=== PATIENT | male | born 1990 | race Hispanic/Latino ===

== ENCOUNTER 2019-04-12 13:33 | Inpatient (IN) | payer OTHER ==
--- NOTE | 2019-04-12 15:22 | Event Note ---
ED Screening Note ED Screening Note: rectal pain that began 4 days ago difficulty having BM no blood no pus drainage no lumps states he has had hemorrhoids in the past PMHx none no allergies to meds states he does do rectal intercourse This initial assessment/diagnostic orders/clinical plan/treatment(s) is/are subject to change based on patients health status, clinical progression and re- assessment by fellow clinical providers in the ED. Further treatment and workup at subsequent clinical providers discretion. Patient/guardian urged not to elope from the ED as their condition may be serious if not clinically assessed and managed. Initial orders include: ACC eval
[2019-04-12 17:45] LABS: Basophils % (Auto) 0.3 % (0.0-1.8); Eosinophils % (Auto) 0.2 % (0.0-4.3); Hematocrit 59.8 % (35.5-45.6); Lymphocytes # (Auto) 1.2 K/mm3 (1.2-5.4); Lymphocytes % (Auto) 11.2 % (13.4-35.0); Mean Corpuscular HGB Conc 35 % (32-34); Mean Corpuscular Volume 98 fl (84-94); Monocytes # (Auto) 0.9 K/mm3 (0.0-0.8); Monocytes % (Auto) 7.7 % (0.0-7.3); Platelet Count 235 K/mm3 (140-440); Red Cell Distribution Width 14.9 % (13.2-15.2)
[2019-04-12 17:48] LABS: Hemoglobin 20.6 gm/dl (11.8-15.2)
[2019-04-12 18:06] LABS: BUN/Creatinine Ratio 7; Blood Urea Nitrogen 5 mg/dL (9-20); Hemolysis Index 49
[2019-04-12] MEDS ORDERED: oxyCODONE /ACETAMINOPHEN 5-325MG TAB PO ONE (18:44)
--- NOTE | 2019-04-12 18:53 | Emergency Department Report ---
ED Male HPI - General Chief complaint: Pain General Stated complaint: RECTAL PAIN Time Seen by Provider: 04/12/19 15:21 Source: patient Mode of arrival: Ambulatory Limitations: No Limitations - History of Present Illness Initial comments: 28 yo male c/o rectal pain and pressure x 4 days. He denies abdominal pain, no diarrhea no n/v no fever or chills. His last BM was yesterday. He admits to having anal sex last time 4 weeks ago. Consistency: constant Improves with: none Worsens with: none denies other symptoms - Related Data Sexually active: Yes (anal sex 4 weeks ago) Allergies Allergy/AdvReac Type Severity Reaction Status Date / Time No Known Allergies Allergy Verified 04/12/19 13:43 ED Review of Systems ROS: Stated complaint: RECTAL PAIN Other details as noted in HPI Comment: All other systems reviewed and negative Constitutional: denies: chills, fever Respiratory: no symptoms reported Cardiovascular: denies: chest pain, palpitations, dyspnea on exertion Gastrointestinal: denies: abdominal pain, diarrhea, constipation Genitourinary: other (rectal pain ) Musculoskeletal: as per HPI Skin: as per HPI ED Past Medical Hx - Past Medical History Previous Medical History?: No - Surgical History Past Surgical History?: No - Social History Smoking Status: Current Every Day Smoker Substance Use Type: None ED Physical Exam - General Limitations: No Limitations General appearance: alert, in no apparent distress - Eye Eye exam: Present: normal appearance. Absent: conjunctival injection - ENT ENT exam: Present: mucous membranes moist - Neck Neck exam: Present: normal inspection - Respiratory Respiratory exam: Present: normal lung sounds bilaterally. Absent: respiratory distress, wheezes, rales, rhonchi, stridor - Cardiovascular Cardiovascular Exam: Present: regular rate, normal heart sounds - GI/Abdominal GI/Abdominal exam: Present: soft, normal bowel sounds, other (normal rectal tone. 1 external hemorrhoid non tender not bleeding, digital rectal exam tenderness to left @3"oclock. ). Absent: distended, tenderness, guarding, rebound - Rectal Rectal exam: Present: normal inspection, normal rectal tone, hemorrhoids, tenderness. Absent: fecal impaction, mass - exam: Present: normal inspection, other (no lymphadenopathy) - Extremities Exam Extremities exam: Present: normal inspection - Back Exam Back exam: Present: normal inspection - Neurological Exam Neurological exam: Present: alert, oriented X3 - Psychiatric Psychiatric exam: Present: normal affect - Skin Skin exam: Present: warm, dry, intact. Absent: rash ED Course Vital Signs 04/12/19 04/12/19 04/12/19 15:22 17:41 18:54 Temperature 98.2 F 99.0 F Pulse Rate 130 H 115 H Respiratory 22 16 17 Rate Blood Pressure 157/111 Blood Pressure 144/95 [Left] O2 Sat by Pulse 96 98 Oximetry 04/12/19 04/13/19 22:23 01:05 Temperature 98.3 F 98.7 F Pulse Rate 87 88 Respiratory 15 16 Rate Blood Pressure Blood Pressure 141/100 150/98 [Left] O2 Sat by Pulse 98 98 Oximetry - Reevaluation(s) Reevaluation #1: 04/12/19 23:[address] Wagoner general surgeon called plan is to admit pt to hospital Reevaluation #2: 04/12/19 23:[address] Martinez ED Medical Decision Making - Lab Data Result diagrams: 04/12/19 17:37 04/12/19 17:37 - Radiology Data Radiology results: report reviewed CT ABD/PELVIS IMPRESSION: 1. Moderate-sized perirectal collection with inflammation, presumably an abscess 2. Focal area of peripheral infiltrate in the left lower lobe. Though this could be pneumonitis, the configuration and slight suggestion, possibly artifactual, of hypodensity in the left lower lobe vasculature would raise the question of pulmonary thromboembolism with infarct. Clinical correlation is suggested. CTA chest might be useful. 3. Moderate fatty infiltration of the liver. Hepatosplenomegaly. - Medical Decision Making 28 yo male with c/o rectal pain and pressure x 4 days. Admits to anal sex last encounter 4 weeks ago Having regular BM but very painful Rectal exam + for tenderness on left. No stool in rectal vault normal rectal tone CT of abdomen and Pelvis + for left rectal abscess WBC 11 IV Fluids for hydration Pain management with Percocet, Morphine and Toradol [address] Wagoner surgeon consulted pt to be admitted Dr. Martinez hospitalist notified PT NPO IV fluids IV unasyn Awaiting bed for in patient admission - Differential Diagnosis Internal hemorrhoids, Anal fissure, Critical Care Time: No Critical care attestation.: If time is entered above; I have spent that time in minutes in the direct care of this critically ill patient, excluding procedure time. ED Disposition Clinical Impression: Rectal abscess Disposition: [id number] OP ADMIT IP TO THIS HOSP Is pt being admited?: Yes Does the pt Need Aspirin: No Condition: Stable
--- NOTE | 2019-04-12 21:15 | Cat Scan Report ---
CT ABDOMEN AND PELVIS WITHOUT CONTRAST INDICATION: rectal pain CONTRAST: Without IV COMPARISON: None available. All CT scans at this location are performed using CT dose reduction for ALARA by means of automated e xposure control. FINDINGS: Focal area of the somewhat wedgelike peripheral infiltrate is seen in the posterior basal s egment of the left lower lobe. Study was performed without contrast and the vasculature cannot truly be examined though some of the vessels extending to this general area have a suggestion of lower dens ity centrally though this may just be artifact and certainly is not definitive for thrombus. No pneumoperitoneum is seen. No urinary tract calculi or evidence of obstruction are noted. Fatty inf iltration of the liver is moderately prominent in the liver is enlarged. Hepatic length measures 20.2 cm. No obvious focal masses are seen. Spleen is also mildly prominent in volume and has a length of 13.5 cm at the upper end of the normal range. Gallbladder shows sludge but no wall thickening or calc brandon. No biliary dilatation is seen. Pancreas appears within normal limits. No lymphadenopathy is seen . Appendix appears within normal limits. No evidence of bowel obstruction is noted. A complex collection is seen adjacent to the left aspect of the upper to mid rectum appearing to disp lace the rectum to the right. This collection is thick walled and shows surrounding inflammation. Dim ensions are 3.7 x 5 x 5.8 cm. No internal gas is seen. Internal density measures 21 Hounsfield units just above the water range and the collection shows moderate inhomogeneity. I do not see obstructive change on the adjacent:. No other collections are seen. IMPRESSION: 1. Moderate-sized perirectal collection with inflammation, presumably an abscess 2. Focal area of peripheral infiltrate in the left lower lobe. Though this could be pneumonitis, the configuration and slight suggestion, possibly artifactual, of hypodensity in the left lower lobe vasc ulature would raise the question of pulmonary thromboembolism with infarct. Clinical correlation is s uggested. CTA chest might be useful. 3. Moderate fatty infiltration of the liver. Hepatosplenomegaly. Signer Name: Marquis Alcaraz MD Signed: 04/12/2019 9:10 PM Workstation Name: [id number]
[2019-04-12] MEDS ORDERED: MORPHINE 2 MG/1 ML INJ IM ONE ×2 (21:19→22:11)
[2019-04-12 21:35] LABS: Color,Urine Yellow (Yellow)
[2019-04-12 21:36] LABS: Bacteria,Urine 1+ /HPF (Negative); Bilirubin,Urine NEG (Negative); Blood,Urine SM (Negative); Mucus,Urine 2+ /HPF; Protein,Urine <15 mg/dL mg/dL (Negative)
[2019-04-12] MEDS ORDERED: SODIUM CHLORIDE 0.9% 1000 ML 1,000 ML IV ONE (22:11)
[2019-04-12] MEDS ORDERED: D5W/0.45% NACL 1,000 ML IV SCH (23:00)
[2019-04-12] MEDS ORDERED: KETOROLAC 30 MG/1 ML INJ IV ONE (23:14)
[2019-04-12] MEDS ORDERED: KETOROLAC 30 MG/1 ML INJ ONE (23:17)
--- NOTE | 2019-04-12 23:42 | History and Physical Report ---
History of Present Illness Date of examination: 04/12/19 History of present illness: 28 with no medical problems to emergency room with complaints of left side rectal pain started 4 days ago, worse when he coughs sneezes. The pain is constant, sharp, intensity 7/10, no radiation, better with pain medication given in the emergency room, no fever or chills, admits to anal sex 2 weeks ago. Patient is being admitted for treatment of perirectal abscess Review Of Systems: Constitutional: no weight loss, fever, chills Ears, eyes, nose, mouth and throat: no nasal congestion, no nasal discharge, no sinus pressure, blurry vision, diplopia Neck: No neck pain or rigidity. Cardiovascular: No palpitations, chest pain Respiratory: No shortness of breath, cough Gastrointestinal: No hematochezia, abdominal pain Genitourinary : no dysuria, frequency Musculoskeletal: no muscle ache , joint pain Integumentary: no rash, no pruritis Neurological: no parathesias, focal weakness Endocrine: no cold or heat intolerance, no polyuria or polydipsia Hematologic/Lymphatic: no easy bruising, no easy bleeding, no gland swelling Allergic/Immunologic: no urticaria, no angioedema. PAST MEDICAL HISTORY: None PAST SURGICAL HISTORY: None SOCIAL HISTORY: Denies alcohol, drugs, smokes 1-1/2 packs every 2 days FAMILY HISTORY: Hypertension Medications and Allergies Allergies Allergy/AdvReac Type Severity Reaction Status Date / Time No Known Allergies Allergy Verified 04/12/19 13:43 Active Meds: Active Medications Enoxaparin Sodium (Enoxaparin) 30 mg SUB-Q QDAY PEREZ Dextrose/Sodium Chloride (D5/0.45ns) 1,000 mls @ 100 mls/hr IV DIRECT PEREZ Ampicillin Sodium/Sulbactam Sodium (Unasyn/Ns 1.5 Gm/50 Ml) 1.5 gm in 50 mls @ 100 mls/hr IV ONCE ONE; Protocol Stop: 04/13/19 00:29 Exam - Physical Exam Narrative exam: Gen. appearance: Patient lying in bed, no apparent distress HEENT: Normocephalic, atraumatic, pupils equally round and reactive to light, extraocular movement intact, and no sclericterus,. No JVD or thyromegaly or nodule,neck supple, no carotid bruit ,mucous membranes moist, no exudate or erythema Heart: S1, S2, regular rate and rhythm Lungs: Clear bilaterally, breathing comfortable Abdomen: Positive bowel sounds, nontender, nondistended, no organomegaly Rectal:outer appearance is normal, + fluctuance on the left rectal wall Extremity: no edema, cyanosis, clubbing Skin: No rash, nodules, warm, dry Neuro: speech is fluent, moves extremities, sensory intact - Constitutional Vitals: Temp Pulse Resp BP Pulse Ox 98.3 F 87 15 141/100 98 04/12/19 22:23 04/12/19 22:23 04/12/19 22:23 04/12/19 22:23 04/12/19 22:23 Results - Labs CBC & Chem 7: 04/12/19 17:37 04/12/19 17:37 Labs: Abnormal lab results 04/12/19 04/12/19 Range/Units 17:37 17:37 WBC 11.1 H (4.5-11.0) K/mm3 RBC 6.10 H (3.65-5.03) M/mm3 Hgb 20.6 H* (11.8-15.2) gm/dl Hct 59.8 H (35.5-45.6) % MCV 98 H (84-94) fl MCH 34 H (28-32) pg MCHC 35 H (32-34) % Lymph % (Auto) 11.2 L (13.4-35.0) % [place] % (Auto) 7.7 H (0.0-7.3) % [place] # 0.9 H (0.0-0.8) K/mm3 Seg Neutrophils % 80.6 H (40.0-70.0) % Seg Neutrophils # 9.0 H (1.8-7.7) K/mm3 Sodium 132 L (137-145) mmol/L Chloride 97.8 L (98-107) mmol/L BUN 5 L (9-20) mg/dL Creatinine 0.7 L (0.8-1.5) mg/dL - Imaging and Cardiology CT scan - abdomen: report reviewed CT scan - pelvis: report reviewed Assessment and Plan Assessment Perirectal abscess Patient will be started on IV fluids, Unasyn Surgery was consulted to see the patient, n.p.o. Possible pneumonia versus PE Will check CT chest Hyponatremia on IV fluids Secondary polycythemia vera, continue to monitor DVT prophylaxis
[2019-04-13] MEDS ORDERED: AMPICILLIN/SULBACTA 1.5GM/50ML 1.5 GM/50 ML BAG IV ONE
[2019-04-13] MEDS ORDERED: ACETAMINOPHEN 325 MG TAB PO PRN (02:38)
[2019-04-13] MEDS ORDERED: ONDANSETRON 4 MG/2 ML INJ IV PRN (02:38)
[2019-04-13] MEDS: MORPHINE 2 MG/1 ML INJ IV PRN ×4 (02:43→12:39)
[2019-04-13] MEDS ORDERED: MORPHINE 2 MG/1 ML INJ ONE (02:45)
[2019-04-13] MEDS: SODIUM CHLORIDE 0.9% 1000 ML 1,000 ML IV SCH ×4 (03:48→23:56)
[2019-04-13] MEDS: AMPICILLIN/SULBACTA 3GM/100ML 3 GM/100 ML BAG IV SCH ×4 (06:57→23:51)
[2019-04-13] MEDS: ENOXAPARIN 40 MG/0.4 ML INJ SUB-Q SCH (10:28)
[2019-04-13 11:29] LABS: Basophils % (Auto) 0.3 % (0.0-1.8); Eosinophils % (Auto) 0.1 % (0.0-4.3); Hematocrit 58.4 % (35.5-45.6); Hemoglobin 19.6 gm/dl (11.8-15.2); Lymphocytes # (Auto) 1.2 K/mm3 (1.2-5.4); Lymphocytes % (Auto) 9.4 % (13.4-35.0); Mean Corpuscular HGB Conc 34 % (32-34); Mean Corpuscular Volume 99 fl (84-94); Monocytes # (Auto) 0.9 K/mm3 (0.0-0.8); Monocytes % (Auto) 7.2 % (0.0-7.3); Red Cell Distribution Width 14.5 % (13.2-15.2)
[2019-04-13 11:40] LABS: Platelet Count 252 K/mm3 (140-440)
[2019-04-13 12:03] LABS: BUN/Creatinine Ratio 7; Blood Urea Nitrogen 4 mg/dL (9-20); Calcium 8.5 mg/dL (8.4-10.2); Hemolysis Index 2
[2019-04-13] MEDS ORDERED: POLYETHYLENE GLYCOL 3350 17 GM POWDER PO PRN (12:39)
[2019-04-13] MEDS ORDERED: HYDROmorphone 1 MG/1 ML INJ IV PRN (14:57)
--- NOTE | 2019-04-13 15:01 | Consultation ---
History of Present Illness Consult date: 04/13/19 Chief complaint: rectal pain - History of present illness History of present illness: 28 yo M with no PMHx presented to ER with 5 days of worsening sharp pressure like rectal pain. He states that he has never had pain like this before. It is predominantly located on the right side. It is exacerbated by coughing, laying on his back, or trying to have a BM. He had a normal BM yesterday and is passing flatus. He denies abdominal pain, f/c. No inciting events. No hx of inflammatory bowel disease. Rectal exam performed in ER reproduced pain. No drainage or bleeding per rectum Past History Past Medical History: No medical history Past Surgical History: No surgical history Social history: no significant social history Family history: no significant family history Medications and Allergies Allergies Allergy/AdvReac Type Severity Reaction Status Date / Time No Known Allergies Allergy Verified 04/12/19 13:43 Active Meds: Active Medications Acetaminophen (Tylenol) 650 mg PO Q4H PRN PRN Reason: Pain MILD(1-3)/Fever >100.5/VALENTINO Last Admin: 04/13/19 03:46 Dose: 650 mg Documented by: Docusate Sodium (Colace) 100 mg PO BID PEREZ Enoxaparin Sodium (Enoxaparin) 40 mg SUB-Q QDAY [facility] Last Admin: 04/13/19 10:28 Dose: 40 mg Documented by: Hydromorphone HCl (Dilaudid) 0.5 mg IV Q3H PRN PRN Reason: Pain , Severe (7-10) Sodium Chloride (Nacl 0.9% 1000 Ml) 1,000 mls @ 150 mls/hr IV DIRECT [facility] Last Admin: 04/13/19 10:50 Dose: 150 mls/hr Documented by: Ampicillin Sodium/Sulbactam Sodium (Unasyn/Ns 3 Gm/100 Ml) 3 gm in 100 mls @ 100 mls/hr IV Q6HR [facility]; Protocol Last Admin: 04/13/19 12:33 Dose: 100 mls/hr Documented by: Morphine Sulfate (Morphine) 2 mg IV Q4H PRN PRN Reason: Pain, Moderate (4-6) Last Admin: 04/13/19 12:39 Dose: 2 mg Documented by: Ondansetron HCl (Zofran) 4 mg IV Q8H PRN PRN Reason: Nausea And Vomiting Polyethylene Glycol (Miralax 3350) 17 gm PO QDAY PRN PRN Reason: Constipation Sodium Chloride (Sodium Chloride Flush Syringe 10 Ml) 10 ml IV BID PEREZ Last Admin: 04/13/19 10:28 Dose: 10 ml Documented by: Sodium Chloride (Sodium Chloride Flush Syringe 10 Ml) 10 ml IV PRN PRN PRN Reason: LINE FLUSH Review of Systems All systems: negative (10 pt ROS performed and negative except for that listed in HPI) Exam Vital Signs Temp Pulse Resp BP Pulse Ox 98.2 F 130 H 22 157/111 96 04/12/19 15:22 04/12/19 15:22 04/12/19 15:22 04/12/19 15:22 04/12/19 15:22 Narrative exam: Gen; AAOx3. mild distress due to pain ENT: No scleral icterus or conjunctival pallor CV: S1, S2+ Resp: even and unlabored Abd: soft, NT, ND Ext: no c/c/e Rectal: deferred due to pain Results - Labs 04/13/19 10:17 04/13/19 10:17 Abnormal lab results 04/12/19 04/12/19 04/13/19 Range/Units 17:37 17:37 10:17 WBC 11.1 H 13.0 H (4.5-11.0) K/mm3 RBC 6.10 H 5.90 H (3.65-5.03) M/mm3 Hgb 20.6 H* 19.6 H (11.8-15.2) gm/dl Hct 59.8 H 58.4 H (35.5-45.6) % MCV 98 H 99 H (84-94) fl MCH 34 H 33 H (28-32) pg MCHC 35 H (32-34) % Lymph % (Auto) 11.2 L 9.4 L (13.4-35.0) % [place] % (Auto) 7.7 H (0.0-7.3) % [place] # 0.9 H 0.9 H (0.0-0.8) K/mm3 Seg Neutrophils % 80.6 H 83.0 H (40.0-70.0) % Seg Neutrophils # 9.0 H 10.8 H (1.8-7.7) K/mm3 Sodium 132 L (137-145) mmol/L Potassium (3.6-5.0) mmol/L Chloride 97.8 L (98-107) mmol/L BUN 5 L (9-20) mg/dL Creatinine 0.7 L (0.8-1.5) mg/dL 04/13/19 Range/Units 10:17 WBC (4.5-11.0) K/mm3 RBC (3.65-5.03) M/mm3 Hgb (11.8-15.2) gm/dl Hct (35.5-45.6) % MCV (84-94) fl MCH (28-32) pg MCHC (32-34) % Lymph % (Auto) (13.4-35.0) % [place] % (Auto) (0.0-7.3) % [place] # (0.0-0.8) K/mm3 Seg Neutrophils % (40.0-70.0) % Seg Neutrophils # (1.8-7.7) K/mm3 Sodium (137-145) mmol/L Potassium 3.4 L (3.6-5.0) mmol/L Chloride (98-107) mmol/L BUN 4 L (9-20) mg/dL Creatinine 0.6 L (0.8-1.5) mg/dL Diabetes panel 04/12/19 04/13/19 Range/Units 17:37 10:17 Sodium 132 L 139 D (137-145) mmol/L Potassium 4.1 3.4 L (3.6-5.0) mmol/L Chloride 97.8 L 102.4 (98-107) mmol/L Carbon Dioxide 22 23 (22-30) mmol/L BUN 5 L 4 L (9-20) mg/dL Creatinine 0.7 L 0.6 L (0.8-1.5) mg/dL Glucose 88 87 (75-100) mg/dL Calcium 9.0 8.5 (8.4-10.2) mg/dL Calcium panel 04/12/19 04/13/19 Range/Units 17:37 10:17 Calcium 9.0 8.5 (8.4-10.2) mg/dL Pituitary panel 04/12/19 04/13/19 Range/Units 17:37 10:17 Sodium 132 L 139 D (137-145) mmol/L Potassium 4.1 3.4 L (3.6-5.0) mmol/L Chloride 97.8 L 102.4 (98-107) mmol/L Carbon Dioxide 22 23 (22-30) mmol/L BUN 5 L 4 L (9-20) mg/dL Creatinine 0.7 L 0.6 L (0.8-1.5) mg/dL Glucose 88 87 (75-100) mg/dL Calcium 9.0 8.5 (8.4-10.2) mg/dL Adrenal panel 04/12/19 04/13/19 Range/Units 17:37 10:17 Sodium 132 L 139 D (137-145) mmol/L Potassium 4.1 3.4 L (3.6-5.0) mmol/L Chloride 97.8 L 102.4 (98-107) mmol/L Carbon Dioxide 22 23 (22-30) mmol/L BUN 5 L 4 L (9-20) mg/dL Creatinine 0.7 L 0.6 L (0.8-1.5) mg/dL Glucose 88 87 (75-100) mg/dL Calcium 9.0 8.5 (8.4-10.2) mg/dL - Imaging CT scan - abdomen: report reviewed, image reviewed CT scan - pelvis: report reviewed, image reviewed Assessment and Plan 28 yo M with perirectal abscess Plan: 1. soft diet, NPO p MN tonight 2. stool softeners 3. prn pain control 4. IV abx 5. CT A/P reviewed and abscess is located adjacent to the mid/upper rectum. Will not be able to drain this surgically through rectum. Recommend IR consultation for CT guided percutaneous drainage. Discussed imaging findings and plan with patient in detail. He understands Thank you, please call with questions.
--- NOTE | 2019-04-13 15:33 | Progress Note ---
Assessment and Plan Assessment and plan: --Perirectal abscess; IV antibiotics, pain medications and supportive care possible IR to CT guided percutaneous drainage tomorrow Stool softeners, --Constipation; stool softeners --Hyponatremia; present on admission Improvement, continue IV fluids --Hypokalemia; replace per protocol Monitor electrolytes --Polycythemia/high hemoglobin Unknown etiology, trending down Closely monitor Hematology consult inpatient versus outpatient --DVT prophylaxis; Lovenox Monitor closely and adjust management as needed Plan of care reviewed with the patient and his nurse History Interval history: Patient seen and examined medical records reviewed Admitted With perirectal abscess on IV antibiotics Surgical evaluation noted and appreciated Schedule for surgical procedure/IR aspiration tomorrow, And complaints of constipation, and some pain in the rectal area Vital signs noted Hospitalist Physical - Constitutional Vitals: Temp Pulse Resp BP Pulse Ox 99.8 F H 103 H 18 146/92 97 04/13/19 12:33 04/13/19 12:33 04/13/19 12:33 04/13/19 12:33 04/13/19 12:33 General appearance: Present: mild distress, well-nourished - EENT Eyes: Present: PERRL, EOM intact - Neck Neck: Present: supple, normal ROM - Respiratory Respiratory effort: normal Respiratory: negative: rales, rhonchi, wheezing - Cardiovascular Rhythm: regular Heart Sounds: Present: S1 & S2 - Extremities Extremities: no ischemia, No edema - Abdominal General gastrointestinal: soft, non-tender, non-distended, normal bowel sounds - Integumentary Integumentary: Present: clear, warm - Psychiatric Psychiatric: appropriate mood/affect, cooperative - Neurologic Neurologic: moves all extremities Results - Labs CBC & Chem 7: 04/13/19 10:17 04/13/19 10:17 Labs: Laboratory Last Values WBC 13.0 K/mm3 (4.5-11.0) H 04/13/19 10:17 RBC 5.90 M/mm3 (3.65-5.03) H 04/13/19 10:17 Hgb 19.6 gm/dl (11.8-15.2) H 04/13/19 10:17 Hct 58.4 % (35.5-45.6) H 04/13/19 10:17 MCV 99 fl (84-94) H 04/13/19 10:17 MCH 33 pg (28-32) H 04/13/19 10:17 MCHC 34 % (32-34) 04/13/19 10:17 RDW 14.5 % (13.2-15.2) 04/13/19 10:17 Plt Count 252 K/mm3 (140-440) 04/13/19 10:17 Lymph % (Auto) 9.4 % (13.4-35.0) L 04/13/19 10:17 [place] % (Auto) 7.2 % (0.0-7.3) 04/13/19 10:17 Eos % (Auto) 0.1 % (0.0-4.3) 04/13/19 10:17 Baso % (Auto) 0.3 % (0.0-1.8) 04/13/19 10:17 Lymph # 1.2 K/mm3 (1.2-5.4) 04/13/19 10:17 [place] # 0.9 K/mm3 (0.0-0.8) H 04/13/19 10:17 Eos # 0.0 K/mm3 (0.0-0.4) 04/13/19 10:17 Baso # 0.0 K/mm3 (0.0-0.1) 04/13/19 10:17 Seg Neutrophils % 83.0 % (40.0-70.0) H 04/13/19 10:17 Seg Neutrophils # 10.8 K/mm3 (1.8-7.7) H 04/13/19 10:17 Sodium 139 mmol/L (137-145) D 04/13/19 10:17 Potassium 3.4 mmol/L (3.6-5.0) L 04/13/19 10:17 Chloride 102.4 mmol/L (98-107) 04/13/19 10:17 Carbon Dioxide 23 mmol/L (22-30) 04/13/19 10:17 Anion Gap 17 mmol/L 04/13/19 10:17 BUN 4 mg/dL (9-20) L 04/13/19 10:17 Creatinine 0.6 mg/dL (0.8-1.5) L 04/13/19 10:17 Estimated GFR > 60 ml/min 04/13/19 10:17 BUN/Creatinine Ratio 7 % 04/13/19 10:17 Glucose 87 mg/dL (75-100) 04/13/19 10:17 Calcium 8.5 mg/dL (8.4-10.2) 04/13/19 10:17 Urine Color Yellow (Yellow) 04/12/19 Unknown Urine Turbidity Clear (Clear) 04/12/19 Unknown Urine pH 6.0 (5.0-7.0) 04/12/19 Unknown Ur Specific [place] 1.010 (1.003-1.030) 04/12/19 Unknown Urine Protein <15 mg/dl mg/dL (Negative) 04/12/19 Unknown Urine Glucose (UA) Neg mg/dL (Negative) 04/12/19 Unknown Urine Ketones 20 mg/dL (Negative) 04/12/19 Unknown Urine Blood Sm (Negative) 04/12/19 Unknown Urine Nitrite Neg (Negative) 04/12/19 Unknown Urine Bilirubin Neg (Negative) 04/12/19 Unknown Urine Urobilinogen 4.0 mg/dL (<2.0) 04/12/19 Unknown Ur Leukocyte Esterase Neg (Negative) 04/12/19 Unknown Urine WBC (Auto) 2.0 /HPF (0.0-6.0) 04/12/19 Unknown Urine RBC (Auto) 4.0 /HPF (0.0-6.0) 04/12/19 Unknown Urine Bacteria (Auto) 1+ /HPF (Negative) 04/12/19 Unknown Urine Mucus 2+ /HPF 04/12/19 Unknown Active Medications - Current Medications Current Medications: Generic Name Dose Route Start Last Admin Trade Name Freq PRN Reason Stop Dose Admin Acetaminophen 650 mg 04/13/19 02:38 04/13/19 03:46 Tylenol PO 650 mg Q4H PRN Administration Pain MILD(1-3)/Fever >100.5/VALENTINO Docusate Sodium 100 mg 04/13/19 22:00 Colace PO BID PEREZ Enoxaparin Sodium 40 mg 04/13/19 10:00 04/13/19 10:28 Enoxaparin SUB-Q 40 mg QDAY PEREZ Administration Hydromorphone HCl 0.5 mg 04/13/19 14:57 Dilaudid IV Q3H PRN Pain , Severe (7-10) Sodium Chloride 1,000 mls @ 150 mls/hr 04/13/19 02:45 04/13/19 10:50 Nacl 0.9% 1000 Ml IV 150 mls/hr DIRECT PEREZ Administration Ampicillin Sodium/Sulbactam Sodium 3 gm in 100 mls @ 100 mls/hr 04/13/19 06:00 04/13/19 12:33 Unasyn/Ns 3 Gm/100 Ml IV 100 mls/hr Q6HR PEREZ Administration Protocol Morphine Sulfate 2 mg 04/13/19 02:38 04/13/19 12:39 Morphine IV 2 mg Q4H PRN Administration Pain, Moderate (4-6) Ondansetron HCl 4 mg 04/13/19 02:38 Zofran IV Q8H PRN Nausea And Vomiting Polyethylene Glycol 17 gm 04/13/19 12:39 Miralax 3350 PO QDAY PRN Constipation Sodium Chloride 10 ml 04/13/19 10:00 04/13/19 10:28 Sodium Chloride Flush Syringe 10 Ml IV 10 ml BID PEREZ Administration Sodium Chloride 10 ml 04/13/19 02:38 Sodium Chloride Flush Syringe 10 Ml IV PRN PRN LINE FLUSH Nutrition/Malnutrition Assess - Dietary Evaluation Nutrition/Malnutrition Findings: Nutrition Notes Start: 04/13/19 10:54 Freq: Status: Active Protocol: Document 04/13/19 10:54 ALYSSIA (Rec: 04/13/19 10:55 ALYSSIA [id number]) Nutrition Notes Need for 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 Will assess upon further consult or LOS.
[2019-04-13] MEDS ORDERED: MAGNESIUM HYDROXIDE (MOM) ORAL LIQD UDC PO PRN (17:18)
[2019-04-13] MEDS ORDERED: MAGNESIUM HYDROXIDE (MOM) ORAL LIQD UDC PO ONE (17:18)
[2019-04-13] MEDS: DOCUSATE SODIUM 100 MG/10 ML ORAL LIQD PO SCH (21:23)
--- NOTE | 2019-04-13 21:47 | Cat Scan Report ---
CTA CHEST WITH IV CONTRAST INDICATION: P.E. PROTOCOL!!! Shortness of Breath w/ chest pain. TECHNIQUE: Axial CT images were obtained through the chest after injection of IV contrast. 3 plane MIP reconstru ctions were produced. All CT scans at this location are performed using CT dose reduction for ALARA b y means of automated exposure control. COMPARISON: CT abdomen one day prior. FINDINGS: Pulmonary Arteries: No pulmonary emboli. Thoracic Aorta: No acute abnormality. Heart: Normal. Lungs: Focal somewhat rounded consolidative change within the deep tendon left lung base again noted. This is unchanged. Lungs are otherwise clear. Pleura: No pleural effusion. No pneumothorax. Lymph Nodes: Shotty bilateral axillary nodes are noted. No pathologically enlarged nodes are seen in the chest. Additional Findings: None. Upper Abdomen: No acute findings. Skeletal Structures: No significant osseous abnormality. IMPRESSION: 1. No CT evidence for pulmonary embolism. 2. As seen on the CT abdomen from one day prior, there is focal, somewhat rounded consolidative juarez e in the dependent left lung base. This may be focal infiltrate. Follow-up is recommended after treat ment to confirm resolution. Signer Name: Bentley Bello MD Signed: 04/13/2019 9:42 PM Workstation Name: [id number]
[2019-04-14] MEDS: AMPICILLIN/SULBACTA 3GM/100ML 3 GM/100 ML BAG IV SCH ×4 (06:02→23:53)
[2019-04-14] MEDS: DOCUSATE SODIUM 100 MG/10 ML ORAL LIQD PO SCH ×3 (09:27→22:00)
[2019-04-14] MEDS: SODIUM CHLORIDE 0.9% 1000 ML 1,000 ML IV SCH ×3 (09:27→23:53)
[2019-04-14] MEDS: ENOXAPARIN 40 MG/0.4 ML INJ SUB-Q SCH (09:28)
--- NOTE | 2019-04-14 10:09 | Event Note ---
Date: 04/14/19 Patient with a history of perirectal abscess. CT scan performed with contrast for better delineation of her abscess. Patient will be scheduled for drainage tomorrow as we don't have enough technologists here today to be able to perform this procedure.
--- NOTE | 2019-04-14 11:37 | Progress Note ---
Assessment and Plan Assessment and plan: --Perirectal abscess; IV antibiotics, pain medications and supportive care CT guided percutaneous drainage rescheduled for tomorrow Due to staffing issueStool softeners, --Constipation; stool softeners --Hyponatremia; present on admission Improved, continue IV fluids --Hypokalemia; replace per protocol Monitor electrolytes --Polycythemia/high hemoglobin Unknown etiology, trending down Closely monitor Hematology consult inpatient versus outpatient --DVT prophylaxis; Lovenox Disposition; CT-guided drainage tomorrow Possible discharge in 1-2 days if stable Plan of care is reviewed with the patient and his nurse . History Interval history: Patient seen and examined medical records reviewed Patient complains of some pain Constipation relieved by stool softener Vital Signs noted Hospitalist Physical - Constitutional Vitals: Temp Pulse Resp BP Pulse Ox 98.8 F 86 18 139/86 96 04/14/19 05:52 04/14/19 05:52 04/14/19 05:52 04/14/19 05:52 04/14/19 05:52 General appearance: Present: mild distress, well-nourished - EENT Eyes: Present: PERRL, EOM intact - Neck Neck: Present: supple, normal ROM - Respiratory Respiratory effort: normal Respiratory: bilateral: diminished, negative: rales, rhonchi, wheezing - Cardiovascular Rhythm: regular Heart Sounds: Present: S1 & S2 - Extremities Extremities: no ischemia, No edema - Abdominal General gastrointestinal: soft, non-tender, non-distended, normal bowel sounds - Integumentary Integumentary: Present: clear, warm - Psychiatric Psychiatric: appropriate mood/affect, cooperative - Neurologic Neurologic: CNII-XII intact, moves all extremities Results - Labs CBC & Chem 7: 04/14/19 15:40 04/13/19 10:17 Labs: Laboratory Last Values WBC 13.0 K/mm3 (4.5-11.0) H 04/13/19 10:17 RBC 5.90 M/mm3 (3.65-5.03) H 04/13/19 10:17 Hgb 19.6 gm/dl (11.8-15.2) H 04/13/19 10:17 Hct 58.4 % (35.5-45.6) H 04/13/19 10:17 MCV 99 fl (84-94) H 04/13/19 10:17 MCH 33 pg (28-32) H 04/13/19 10:17 MCHC 34 % (32-34) 04/13/19 10:17 RDW 14.5 % (13.2-15.2) 04/13/19 10:17 Plt Count 252 K/mm3 (140-440) 04/13/19 10:17 Lymph % (Auto) 9.4 % (13.4-35.0) L 04/13/19 10:17 [place] % (Auto) 7.2 % (0.0-7.3) 04/13/19 10:17 Eos % (Auto) 0.1 % (0.0-4.3) 04/13/19 10:17 Baso % (Auto) 0.3 % (0.0-1.8) 04/13/19 10:17 Lymph # 1.2 K/mm3 (1.2-5.4) 04/13/19 10:17 [place] # 0.9 K/mm3 (0.0-0.8) H 04/13/19 10:17 Eos # 0.0 K/mm3 (0.0-0.4) 04/13/19 10:17 Baso # 0.0 K/mm3 (0.0-0.1) 04/13/19 10:17 Seg Neutrophils % 83.0 % (40.0-70.0) H 04/13/19 10:17 Seg Neutrophils # 10.8 K/mm3 (1.8-7.7) H 04/13/19 10:17 Sodium 139 mmol/L (137-145) D 04/13/19 10:17 Potassium 3.4 mmol/L (3.6-5.0) L 04/13/19 10:17 Chloride 102.4 mmol/L (98-107) 04/13/19 10:17 Carbon Dioxide 23 mmol/L (22-30) 04/13/19 10:17 Anion Gap 17 mmol/L 04/13/19 10:17 BUN 4 mg/dL (9-20) L 04/13/19 10:17 Creatinine 0.6 mg/dL (0.8-1.5) L 04/13/19 10:17 Estimated GFR > 60 ml/min 01/01/20 10:17 BUN/Creatinine Ratio 7 % 04/13/19 10:17 Glucose 87 mg/dL (75-100) 04/13/19 10:17 Calcium 8.5 mg/dL (8.4-10.2) 04/13/19 10:17 Urine Color Yellow (Yellow) 04/12/19 Unknown Urine Turbidity Clear (Clear) 04/12/19 Unknown Urine pH 6.0 (5.0-7.0) 04/12/19 Unknown Ur Specific [place] 1.010 (1.003-1.030) 04/12/19 Unknown Urine Protein <15 mg/dl mg/dL (Negative) 04/12/19 Unknown Urine Glucose (UA) Neg mg/dL (Negative) 04/12/19 Unknown Urine Ketones 20 mg/dL (Negative) 04/12/19 Unknown Urine Blood Sm (Negative) 04/12/19 Unknown Urine Nitrite Neg (Negative) 04/12/19 Unknown Urine Bilirubin Neg (Negative) 04/12/19 Unknown Urine Urobilinogen 4.0 mg/dL (<2.0) 04/12/19 Unknown Ur Leukocyte Esterase Neg (Negative) 04/12/19 Unknown Urine WBC (Auto) 2.0 /HPF (0.0-6.0) 04/12/19 Unknown Urine RBC (Auto) 4.0 /HPF (0.0-6.0) 04/12/19 Unknown Urine Bacteria (Auto) 1+ /HPF (Negative) 04/12/19 Unknown Urine Mucus 2+ /HPF 04/12/19 Unknown Active Medications - Current Medications Current Medications: Generic Name Dose Route Start Last Admin Trade Name Freq PRN Reason Stop Dose Admin Acetaminophen 650 mg 04/13/19 02:38 04/13/19 03:46 Tylenol PO 650 mg Q4H PRN Administration Pain MILD(1-3)/Fever >100.5/VALENTINO Docusate Sodium 100 mg 04/13/19 22:00 04/14/19 09:27 Colace PO Not Given BID PEREZ Enoxaparin Sodium 40 mg 04/13/19 10:00 04/14/19 09:28 Enoxaparin SUB-Q Not Given QDAY PEREZ Hydromorphone HCl 0.5 mg 04/13/19 14:57 Dilaudid IV Q3H PRN Pain , Severe (7-10) Sodium Chloride 1,000 mls @ 150 mls/hr 04/13/19 02:45 04/14/19 09:27 Nacl 0.9% 1000 Ml IV 150 mls/hr DIRECT PEREZ Administration Ampicillin Sodium/Sulbactam Sodium 3 gm in 100 mls @ 100 mls/hr 04/13/19 06:00 04/14/19 06:02 Unasyn/Ns 3 Gm/100 Ml IV 100 mls/hr Q6HR PEREZ Administration Protocol Magnesium Hydroxide 30 ml 04/13/19 17:18 Milk Of Magnesia PO QDAY PRN Constipation Morphine Sulfate 2 mg 04/13/19 02:38 04/13/19 12:39 Morphine IV 2 mg Q4H PRN Administration Pain, Moderate (4-6) Ondansetron HCl 4 mg 04/13/19 02:38 Zofran IV Q8H PRN Nausea And Vomiting Polyethylene Glycol 17 gm 04/13/19 12:39 Miralax 3350 PO QDAY PRN Constipation Sodium Chloride 10 ml 04/13/19 10:00 04/14/19 09:27 Sodium Chloride Flush Syringe 10 Ml IV 10 ml BID PEREZ Administration Sodium Chloride 10 ml 04/13/19 02:38 Sodium Chloride Flush Syringe 10 Ml IV PRN PRN LINE FLUSH Nutrition/Malnutrition Assess - Dietary Evaluation Nutrition/Malnutrition Findings: Nutrition Notes Start: 04/13/19 10:54 Freq: Status: Active Protocol: Document 04/13/19 10:54 ALYSSIA (Rec: 04/13/19 10:55 ALYSSIA [email or web address]) Nutrition Notes Need for Assessment generated from: belt glass sander Initial or Follow up Brief Note Subjective/Other Information Pt screened for skin risk, however, Abhilash score is 20. Will assess upon further consult or LOS.
[2019-04-14] MEDS: IBUPROFEN 600 MG TAB PO PRN ×2 (12:34→21:56)
--- NOTE | 2019-04-14 13:40 | Cat Scan Report ---
CT ABDOMEN AND PELVIS WITH CONTRAST HISTORY: perirectal abscess COMPARISON: 04/12/2019 TECHNIQUE: Axial CT images were obtained through the abdomen and pelvis after 100 cc of Omnipaque 300 intravenously. Sagittal and coronal reformatted images. All CT scans at this location are performed using CT dose reduction for ALARA by means of automated exposure control. FINDINGS: CT ABDOMEN: Lung Bases: Focal infiltration in the posterior left lower lobe is unchanged. The remainder of the lucio ng bases are well-aerated. Normal heart size. Liver: The liver is mildly enlarged with diffuse fatty infiltration. Biliary: No significant abnormality. Spleen: The spleen is mildly enlarged measuring 14.5 cm in length. Pancreas: No significant abnormality. Adrenals: No significant abnormality. Kidneys: No significant abnormality. Lymphatics: No lymphadenopathy. Vasculature: No significant abnormality. Bowel/Peritoneum: Peripherally enhancing left perirectal fluid collection has increased in size sligh tly from 5.4 x 4.7 cm to 6.1 x 5.5 cm. The rectum is displaced to the right side. There is no evidenc e for bowel obstruction or free air. Normal appendix. CT PELVIS: : The bladder and distal ureters are unremarkable. Osseous Structures: No significant abnormality. Additional Findings: None IMPRESSION: Minimal interval increase in the left perirectal abscess since 04/12/2019. No change in the focal infiltration at the left lung base. Mild hepatosplenomegaly. Signer Name: Chao Woods Jr, MD Signed: 04/14/2019 1:35 PM Workstation Name: [id number]
--- NOTE | 2019-04-14 15:07 | Event Note ---
Date: 04/14/19 Pt chart reviewed. Pt seen by Dr. Maloney and repeat CT with IV contrast ordered to better evaluate abscess. Plan for percutaneous drainage tomorrow 04/15/19 due to limited master fire control technician staffing.
[2019-04-14 16:03] LABS: Basophils % (Auto) 0.3 % (0.0-1.8); Eosinophils % (Auto) 0.5 % (0.0-4.3); Hematocrit 57.5 % (35.5-45.6); Hemoglobin 19.5 gm/dl (11.8-15.2); Lymphocytes # (Auto) 0.9 K/mm3 (1.2-5.4); Mean Corpuscular HGB Conc 34 % (32-34); Mean Corpuscular Volume 99 fl (84-94); Monocytes # (Auto) 0.8 K/mm3 (0.0-0.8); Monocytes % (Auto) 9.4 % (0.0-7.3); Platelet Count 251 K/mm3 (140-440); Red Blood Count 5.81 M/mm3 (3.65-5.03); Red Cell Distribution Width 14.8 % (13.2-15.2)
[2019-04-15] MEDS: SODIUM CHLORIDE 0.9% 1000 ML 1,000 ML IV SCH (06:18)
[2019-04-15] MEDS: AMPICILLIN/SULBACTA 3GM/100ML 3 GM/100 ML BAG IV SCH ×2 (06:18→12:39)
[2019-04-15] MEDS ORDERED: fentaNYL 100 MCG/2 ML INJ IV NR ×2 (08:35→10:04)
[2019-04-15] MEDS ORDERED: MIDAZOLAM 5 MG/5 ML INJ MDV IV ONE ×2 (09:30→11:08)
[2019-04-15] MEDS ORDERED: MIDAZOLAM 5 MG/5 ML INJ MDV IV NR (10:04)
[2019-04-15] MEDS: ENOXAPARIN 40 MG/0.4 ML INJ SUB-Q SCH (10:07)
[2019-04-15] MEDS: DOCUSATE SODIUM 100 MG/10 ML ORAL LIQD PO SCH ×2 (10:07→21:32)
[2019-04-15] MEDS ORDERED: SODIUM CHLORIDE 0.9% 500 ML 0 ML ONE (11:04)
[2019-04-15] MEDS ORDERED: fentaNYL 100 MCG/2 ML INJ ONE (11:09)
[2019-04-15] MEDS: MORPHINE 2 MG/1 ML INJ IV PRN (12:37)
--- NOTE | 2019-04-15 12:42 | Cat Scan Report ---
Exam: CT-guided drainage of a perirectal abscess Clinical indication: Patient with a history of perirectal abscess Date: 04/15/2019 Procedure: Following an explanation of the risks, benefits and alternatives; written informed consent was obtained. The patient was brought to the CT suite and placed in prone position on the gantry. Initial wind farm support specialist images of his lower back and buttocks were obtained and appropriate access site was chosen along the lower left buttock. Patient was prepped and draped in usual sterile fashion. 1% lidocaine was used for anesthesia. Using intermittent CT guidance, a 7 cm 18 gauge trocar needle was advanced into the central aspect of the abscess. Images were saved for documentation. The trocar was removed. There was prompt return of purulent fluid. A 0.035 guidewire was then advanced through the needle and coiled within the abscess. The needle was removed and following serial dilation over the guidewire, an 8 Danish drainage catheter was placed over the guidewire and positioned with the pigtail in the central aspect of the fluid collection. Additional CT images were obtained to document appropriate positioning. A total of 70 mL of purulent fluid was then aspirated. Samples were sent for laboratory analysis. The catheter was securely fastened to the skin surface using 0 silk suture and a Stayfix device. The catheter was then placed to JULIETA bulb drainage. The patient tolerated the procedure well. There were no immediate post procedure complications. Conscious sedation was performed under the guidance a radiologic nurse impaired continuous cardiopulmonary monitoring is visualized. Impression: CT-guided placement of an 8 Danish drainage catheter into a left perirectal abscess and 70 mL's of purulent fluid was aspirated. Samples sent for laboratory analysis.
[2019-04-15] MEDS ORDERED: HYDROcodone/ACETAMINOPHEN 5-325 MG TAB PO PRN (15:15)
--- NOTE | 2019-04-15 15:17 | Progress Note ---
Assessment and Plan 28 yo M with perirectal abscess status post transgluteal drain placement by radiology Plan: 1. soft diet 2. stool softeners as needed 3. prn pain control - change to PO 4. IV abx, await cultures from drainage procedure 5. drain management as ordered, record output q shift Thank you, please call with questions. Subjective Date of service: 04/15/19 Narrative: Seen and examined. He has been afebrile. He states he feels much better after the abscess was drained by radiology today. Tolerating a diet. He had 2 bowel movements yesterday. Objective Vital Signs - 12hr 04/15/19 04/15/19 04/15/19 06:19 11:35 11:45 Temperature 98.5 F Pulse Rate 79 Pulse Rate [ 105 H 91 H Intra-Procedure ] Pulse Rate [ Post-Procedure] Respiratory 20 Rate Respiratory 13 16 Rate [Intra- Procedure] Respiratory Rate [Post- Procedure] Blood Pressure 146/96 Blood Pressure 160/109 143/96 [Intra- Procedure] Blood Pressure [Post-Procedure ] O2 Sat by Pulse 97 Oximetry O2 Sat by Pulse 97 96 Oximetry [ Intra-Procedure ] O2 Sat by Pulse Oximetry [Post -Procedure] 04/15/19 04/15/19 04/15/19 11:48 11:51 11:57 Temperature Pulse Rate Pulse Rate [ 93 H 90 Intra-Procedure ] Pulse Rate [ 89 Post-Procedure] Respiratory Rate Respiratory 17 19 Rate [Intra- Procedure] Respiratory 12 Rate [Post- Procedure] Blood Pressure Blood Pressure 148/96 154/100 [Intra- Procedure] Blood Pressure 151/94 [Post-Procedure ] O2 Sat by Pulse Oximetry O2 Sat by Pulse 96 96 Oximetry [ Intra-Procedure ] O2 Sat by Pulse 96 Oximetry [Post -Procedure] 04/15/19 04/15/19 04/15/19 12:03 12:08 12:13 Temperature Pulse Rate Pulse Rate [ Intra-Procedure ] Pulse Rate [ 85 88 89 Post-Procedure] Respiratory Rate Respiratory Rate [Intra- Procedure] Respiratory 17 12 15 Rate [Post- Procedure] Blood Pressure Blood Pressure [Intra- Procedure] Blood Pressure 146/93 151/100 141/98 [Post-Procedure ] O2 Sat by Pulse Oximetry O2 Sat by Pulse Oximetry [ Intra-Procedure ] O2 Sat by Pulse 96 95 97 Oximetry [Post -Procedure] 04/15/19 04/15/19 12:18 12:43 Temperature Pulse Rate Pulse Rate [ Intra-Procedure ] Pulse Rate [ 92 H Post-Procedure] Respiratory 15 Rate Respiratory Rate [Intra- Procedure] Respiratory 14 Rate [Post- Procedure] Blood Pressure Blood Pressure [Intra- Procedure] Blood Pressure 146/92 [Post-Procedure ] O2 Sat by Pulse Oximetry O2 Sat by Pulse Oximetry [ Intra-Procedure ] O2 Sat by Pulse 97 Oximetry [Post -Procedure] - General physical appearance Narrative Exam: General: Awake, alert, oriented 3. No apparent distress CV: S1, S2 present Respiratory: No audible wheezes Extremities: no clubbing cyanosis edema Rectal: There is a transgluteal drain present with seropurulent fluid in the bulb. - Labs 04/14/19 15:40 04/15/19 07:27 Diabetes panel 04/15/19 Range/Units 07:27 Potassium 3.6 (3.6-5.0) mmol/L Pituitary panel 04/15/19 Range/Units 07:27 Potassium 3.6 (3.6-5.0) mmol/L Adrenal panel 04/15/19 Range/Units 07:27 Potassium 3.6 (3.6-5.0) mmol/L
[2019-04-15] MEDS: IBUPROFEN 600 MG TAB PO PRN (16:22)
--- NOTE | 2019-04-15 18:34 | Progress Note ---
Assessment and Plan Assessment and plan: --Perirectal abscess;status post transgluteal drain placement by radiology IV antibiotics, pain medications and f/u the cultures Drain management, surgery following --Constipation; stool softeners --Hyponatremia; present on admission Resolved --Hypokalemia; resolved --Polycythemia/high hemoglobin Unknown etiology, trending down Hematology consult outpatient --DVT prophylaxis; Lovenox Monitor closely and adjust management as needed Discharge when medically stable and cleared by surgery Plan of care is reviewed with the patient and his nurse . History Interval history: Sensation and examined medical records reviewed Patient underwent transgluteal drain placement Complains of some pain Vital signs reviewed Hospitalist Physical - Constitutional Vitals: Temp Pulse Resp BP Pulse Ox 98.5 F 92 H 15 146/92 97 04/15/19 06:19 04/15/19 12:18 04/15/19 12:43 04/15/19 12:18 04/15/19 12:18 General appearance: Present: mild distress, well-nourished - EENT Eyes: Present: PERRL, EOM intact - Neck Neck: Present: supple, normal ROM - Respiratory Respiratory effort: normal Respiratory: bilateral: diminished, negative: rales, rhonchi, wheezing - Cardiovascular Rhythm: regular Heart Sounds: Present: S1 & S2 - Extremities Extremities: no ischemia, No edema - Abdominal General gastrointestinal: soft, non-tender, non-distended, normal bowel sounds - Integumentary Integumentary: Present: clear, warm - Psychiatric Psychiatric: appropriate mood/affect, cooperative - Neurologic Neurologic: CNII-XII intact, moves all extremities - Additional findings Additional findings: Transgluteal drain in place Results - Labs CBC & Chem 7: 04/14/19 15:40 04/15/19 07:27 Labs: Laboratory Last Values WBC 8.3 K/mm3 (4.5-11.0) 04/14/19 15:40 RBC 5.81 M/mm3 (3.65-5.03) H 04/14/19 15:40 Hgb 19.5 gm/dl (11.8-15.2) H 04/14/19 15:40 Hct 57.5 % (35.5-45.6) H 04/14/19 15:40 MCV 99 fl (84-94) H 04/14/19 15:40 MCH 34 pg (28-32) H 04/14/19 15:40 MCHC 34 % (32-34) 04/14/19 15:40 RDW 14.8 % (13.2-15.2) 04/14/19 15:40 Plt Count 251 K/mm3 (140-440) 04/14/19 15:40 Lymph % (Auto) 11.0 % (13.4-35.0) L 04/14/19 15:40 [place] % (Auto) 9.4 % (0.0-7.3) H 04/14/19 15:40 Eos % (Auto) 0.5 % (0.0-4.3) 04/14/19 15:40 Baso % (Auto) 0.3 % (0.0-1.8) 04/14/19 15:40 Lymph # 0.9 K/mm3 (1.2-5.4) L 04/14/19 15:40 [place] # 0.8 K/mm3 (0.0-0.8) 04/14/19 15:40 Eos # 0.0 K/mm3 (0.0-0.4) 04/14/19 15:40 Baso # 0.0 K/mm3 (0.0-0.1) 04/14/19 15:40 Seg Neutrophils % 78.8 % (40.0-70.0) H 04/14/19 15:40 Seg Neutrophils # 6.5 K/mm3 (1.8-7.7) 04/14/19 15:40 Sodium 139 mmol/L (137-145) D 04/13/19 10:17 Potassium 3.6 mmol/L (3.6-5.0) 04/15/19 07:27 Chloride 102.4 mmol/L (98-107) 04/13/19 10:17 Carbon Dioxide 23 mmol/L (22-30) 04/13/19 10:17 Anion Gap 17 mmol/L 04/13/19 10:17 BUN 4 mg/dL (9-20) L 04/13/19 10:17 Creatinine 0.6 mg/dL (0.8-1.5) L 04/13/19 10:17 Estimated GFR > 60 ml/min 04/13/19 10:17 BUN/Creatinine Ratio 7 % 04/13/19 10:17 Glucose 87 mg/dL (75-100) 04/13/19 10:17 Calcium 8.5 mg/dL (8.4-10.2) 04/13/19 10:17 Magnesium 1.80 mg/dL (1.7-2.3) 04/15/19 07:27 Urine Color Yellow (Yellow) 04/12/19 Unknown Urine Turbidity Clear (Clear) 04/12/19 Unknown Urine pH 6.0 (5.0-7.0) 04/12/19 Unknown Ur Specific [place] 1.010 (1.003-1.030) 04/12/19 Unknown Urine Protein <15 mg/dl mg/dL (Negative) 04/12/19 Unknown Urine Glucose (UA) Neg mg/dL (Negative) 04/12/19 Unknown Urine Ketones 20 mg/dL (Negative) 04/12/19 Unknown Urine Blood Sm (Negative) 04/12/19 Unknown Urine Nitrite Neg (Negative) 04/12/19 Unknown Urine Bilirubin Neg (Negative) 04/12/19 Unknown Urine Urobilinogen 4.0 mg/dL (<2.0) 04/12/19 Unknown Ur Leukocyte Esterase Neg (Negative) 04/12/19 Unknown Urine WBC (Auto) 2.0 /HPF (0.0-6.0) 04/12/19 Unknown Urine RBC (Auto) 4.0 /HPF (0.0-6.0) 04/12/19 Unknown Urine Bacteria (Auto) 1+ /HPF (Negative) 04/12/19 Unknown Urine Mucus 2+ /HPF 04/12/19 Unknown Active Medications - Current Medications Current Medications: Generic Name Dose Route Start Last Admin Trade Name Freq PRN Reason Stop Dose Admin Acetaminophen 650 mg 04/13/19 02:38 04/13/19 03:46 Tylenol PO 650 mg Q4H PRN Administration Pain MILD(1-3)/Fever >100.5/VALENTINO Acetaminophen/Hydrocodone Bitart 1 each 04/15/19 15:15 [place] 5/325 PO Q6H PRN Pain , Severe (7-10) Docusate Sodium 100 mg 04/13/19 22:00 04/15/19 10:07 Colace PO Not Given BID PEREZ Enoxaparin Sodium 40 mg 04/13/19 10:00 04/15/19 10:07 Enoxaparin SUB-Q Not Given QDAY PEREZ Ampicillin Sodium/Sulbactam Sodium 3 gm in 100 mls @ 100 mls/hr 04/13/19 06:00 04/15/19 12:39 Unasyn/Ns 3 Gm/100 Ml IV 100 mls/hr Q6HR PEREZ Administration Protocol Ibuprofen 600 mg 04/14/19 11:56 04/15/19 16:22 Ibuprofen PO 600 mg Q8H PRN Administration Pain, Mild (1-3) Magnesium Hydroxide 30 ml 04/13/19 17:18 Milk Of Magnesia PO QDAY PRN Constipation Ondansetron HCl 4 mg 04/13/19 02:38 Zofran IV Q8H PRN Nausea And Vomiting Polyethylene Glycol 17 gm 04/13/19 12:39 Miralax 3350 PO QDAY PRN Constipation Sodium Chloride 10 ml 04/13/19 10:00 04/14/19 21:57 Sodium Chloride Flush Syringe 10 Ml IV 10 ml BID PEREZ Administration Sodium Chloride 10 ml 04/13/19 02:38 Sodium Chloride Flush Syringe 10 Ml IV PRN PRN LINE FLUSH Nutrition/Malnutrition Assess - Dietary Evaluation Nutrition/Malnutrition Findings: Nutrition Notes Start: 04/13/19 10:54 Freq: Status: Active Protocol: Document 04/13/19 10:54 ALYSSIA (Rec: 04/13/19 10:55 ALYSSIA [id number]) Nutrition Notes Need for Assessment generated from: ad operations specialist Initial or Follow up Brief Note Subjective/Other Information Pt screened for skin risk, however, Abhilash score is 20. Will assess upon further consult or LOS.
[2019-04-16] MEDS: AMPICILLIN/SULBACTA 3GM/100ML 3 GM/100 ML BAG IV SCH ×5 (00:02→18:43)
[2019-04-16] MEDS: IBUPROFEN 600 MG TAB PO PRN ×2 (06:15→16:31)
--- NOTE | 2019-04-16 08:44 | Progress Note ---
Assessment and Plan Assessment and plan: --Perirectal abscess;status post transgluteal drain placement by radiology IV antibiotics, pain medications and f/u the cultures Drain functioning well , case management to set up home health , surgery fol lowing Follow cultures, sensitivities, adjust antibiotics as needed --Constipation; stool softeners, resolved --Hyponatremia; present on admission Resolved --Hypokalemia; resolved --Polycythemia/high hemoglobin Unknown etiology, trending down Hematology consult outpatient --DVT prophylaxis; Lovenox --Discharge planning per case management To set up home health services, gluteal drain management Monitor closely and adjust management as needed Discharge when medically stable and cleared by surgery Plan of care is reviewed with the patient and his nurse . History Interval history: Patient seen and examined medical records reviewed Patient feels slightly better Underwent CT-guided drainage of rhona-rectal abscess Vital signs reviewed Hospitalist Physical - Constitutional Vitals: Temp Pulse Resp BP Pulse Ox 98.2 F 65 20 148/101 95 04/16/19 00:31 04/16/19 00:31 04/16/19 00:31 04/16/19 00:31 04/16/19 00:31 General appearance: Present: mild distress, well-nourished - EENT Eyes: Present: PERRL, EOM intact - Neck Neck: Present: supple, normal ROM - Respiratory Respiratory effort: normal Respiratory: bilateral: diminished, negative: rales, rhonchi, wheezing - Cardiovascular Rhythm: regular Heart Sounds: Present: S1 & S2 - Extremities Extremities: no ischemia, No edema - Abdominal General gastrointestinal: soft, non-tender, non-distended, normal bowel sounds - Psychiatric Psychiatric: appropriate mood/affect, cooperative - Neurologic Neurologic: moves all extremities - Additional findings Additional findings: Gluteal drain in place, functional Results - Labs CBC & Chem 7: 04/14/19 15:40 04/15/19 07:27 Labs: Laboratory Last Values WBC 8.3 K/mm3 (4.5-11.0) 04/14/19 15:40 RBC 5.81 M/mm3 (3.65-5.03) H 04/14/19 15:40 Hgb 19.5 gm/dl (11.8-15.2) H 04/14/19 15:40 Hct 57.5 % (35.5-45.6) H 04/14/19 15:40 MCV 99 fl (84-94) H 04/14/19 15:40 MCH 34 pg (28-32) H 04/14/19 15:40 MCHC 34 % (32-34) 04/14/19 15:40 RDW 14.8 % (13.2-15.2) 04/14/19 15:40 Plt Count 251 K/mm3 (140-440) 04/14/19 15:40 Lymph % (Auto) 11.0 % (13.4-35.0) L 04/14/19 15:40 [place] % (Auto) 9.4 % (0.0-7.3) H 04/14/19 15:40 Eos % (Auto) 0.5 % (0.0-4.3) 04/14/19 15:40 Baso % (Auto) 0.3 % (0.0-1.8) 04/14/19 15:40 Lymph # 0.9 K/mm3 (1.2-5.4) L 04/14/19 15:40 [place] # 0.8 K/mm3 (0.0-0.8) 04/14/19 15:40 Eos # 0.0 K/mm3 (0.0-0.4) 04/14/19 15:40 Baso # 0.0 K/mm3 (0.0-0.1) 04/14/19 15:40 Seg Neutrophils % 78.8 % (40.0-70.0) H 04/14/19 15:40 Seg Neutrophils # 6.5 K/mm3 (1.8-7.7) 04/14/19 15:40 Sodium 139 mmol/L (137-145) D 04/13/19 10:17 Potassium 3.6 mmol/L (3.6-5.0) 04/15/19 07:27 Chloride 102.4 mmol/L (98-107) 04/13/19 10:17 Carbon Dioxide 23 mmol/L (22-30) 04/13/19 10:17 Anion Gap 17 mmol/L 04/13/19 10:17 BUN 4 mg/dL (9-20) L 04/13/19 10:17 Creatinine 0.6 mg/dL (0.8-1.5) L 04/13/19 10:17 Estimated GFR > 60 ml/min 04/13/19 10:17 BUN/Creatinine Ratio 7 % 04/13/19 10:17 Glucose 87 mg/dL (75-100) 04/13/19 10:17 Calcium 8.5 mg/dL (8.4-10.2) 04/13/19 10:17 Magnesium 1.80 mg/dL (1.7-2.3) 04/15/19 07:27 Urine Color Yellow (Yellow) 04/12/19 Unknown Urine Turbidity Clear (Clear) 04/12/19 Unknown Urine pH 6.0 (5.0-7.0) 04/12/19 Unknown Ur Specific [place] 1.010 (1.003-1.030) 04/12/19 Unknown Urine Protein <15 mg/dl mg/dL (Negative) 04/12/19 Unknown Urine Glucose (UA) Neg mg/dL (Negative) 04/12/19 Unknown Urine Ketones 20 mg/dL (Negative) 04/12/19 Unknown Urine Blood Sm (Negative) 04/12/19 Unknown Urine Nitrite Neg (Negative) 04/12/19 Unknown Urine Bilirubin Neg (Negative) 04/12/19 Unknown Urine Urobilinogen 4.0 mg/dL (<2.0) 04/12/19 Unknown Ur Leukocyte Esterase Neg (Negative) 04/12/19 Unknown Urine WBC (Auto) 2.0 /HPF (0.0-6.0) 04/12/19 Unknown Urine RBC (Auto) 4.0 /HPF (0.0-6.0) 04/12/19 Unknown Urine Bacteria (Auto) 1+ /HPF (Negative) 04/12/19 Unknown Urine Mucus 2+ /HPF 04/12/19 Unknown Active Medications - Current Medications Current Medications: Generic Name Dose Route Start Last Admin Trade Name Freq PRN Reason Stop Dose Admin Acetaminophen 650 mg 04/13/19 02:38 04/13/19 03:46 Tylenol PO 650 mg Q4H PRN Administration Pain MILD(1-3)/Fever >100.5/VALENTINO Acetaminophen/Hydrocodone Bitart 1 each 04/15/19 15:15 04/15/19 21:35 [place] 5/325 PO 1 each Q6H PRN Administration Pain , Severe (7-10) Docusate Sodium 100 mg 04/13/19 22:00 04/15/19 21:32 Colace PO 100 mg BID PEREZ Administration Enoxaparin Sodium 40 mg 04/13/19 10:00 04/15/19 10:07 Enoxaparin SUB-Q Not Given QDAY PEREZ Ampicillin Sodium/Sulbactam Sodium 3 gm in 100 mls @ 100 mls/hr 04/13/19 06:00 04/16/19 06:11 Unasyn/Ns 3 Gm/100 Ml IV 100 mls/hr Q6HR PEREZ Administration Protocol Ibuprofen 600 mg 04/14/19 11:56 04/16/19 06:15 Ibuprofen PO 600 mg Q8H PRN Administration Pain, Mild (1-3) Magnesium Hydroxide 30 ml 04/13/19 17:18 Milk Of Magnesia PO QDAY PRN Constipation Ondansetron HCl 4 mg 04/13/19 02:38 Zofran IV Q8H PRN Nausea And Vomiting Polyethylene Glycol 17 gm 04/13/19 12:39 Miralax 3350 PO QDAY PRN Constipation Sodium Chloride 10 ml 04/13/19 10:00 04/15/19 23:43 Sodium Chloride Flush Syringe 10 Ml IV Not Given BID PEREZ Sodium Chloride 10 ml 04/13/19 02:38 Sodium Chloride Flush Syringe 10 Ml IV PRN PRN LINE FLUSH Nutrition/Malnutrition Assess - Dietary Evaluation Nutrition/Malnutrition Findings: Nutrition Notes Start: 04/13/19 10:54 Freq: Status: Active Protocol: Document 04/13/19 10:54 ALYSSIA (Rec: 04/13/19 10:55 ALYSSIA [email or web address]) Nutrition Notes Need for 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 Will assess upon further consult or LOS.
[2019-04-16] MEDS: DOCUSATE SODIUM 100 MG/10 ML ORAL LIQD PO SCH ×2 (09:31→22:07)
[2019-04-16] MEDS: ENOXAPARIN 40 MG/0.4 ML INJ SUB-Q SCH (09:31)
--- NOTE | 2019-04-16 12:31 | Progress Note ---
Assessment and Plan 28 yo M with perirectal abscess status post transgluteal drain placement by radiology Plan: 1. soft diet 2. stool softeners as needed 3. prn PO pain control 4. IV abx, await cultures from drainage procedure 5. drain management as ordered, record output q shift 6. may need HHC if discharged with drain Further recs pending culture results. Thank you, please call with questions. Subjective Date of service: 04/16/19 Narrative: Pt seen and examined. No acute complaints. Afebrile. Feeling well Objective Vital Signs - 12hr 04/16/19 04/16/19 04/16/19 00:31 04:54 11:53 Temperature 98.2 F 98.6 F 97.9 F Pulse Rate 65 90 67 Respiratory 20 18 16 Rate Blood Pressure 148/101 135/87 122/82 O2 Sat by Pulse 95 95 95 Oximetry - General physical appearance Narrative Exam: Gen; AAOx3. NAD CV: S1, S2+ resp: even and unlabored Abd: soft, NT, ND Ext: no c/c/e Gluteal: Drain seropurulent - Labs 04/14/19 15:40 04/15/19 07:27
[2019-04-17] MEDS: AMPICILLIN/SULBACTA 3GM/100ML 3 GM/100 ML BAG IV SCH ×4 (00:30→17:06)
[2019-04-17] MEDS: IBUPROFEN 600 MG TAB PO PRN ×3 (00:35→21:22)
[2019-04-17 08:14] LABS: Basophils % (Auto) 0.8 % (0.0-1.8); Eosinophils % (Auto) 0.9 % (0.0-4.3); Lymphocytes % (Auto) 25.5 % (13.4-35.0); Mean Corpuscular HGB Conc 34 % (32-34); Mean Corpuscular Volume 98 fl (84-94); Monocytes # (Auto) 0.5 K/mm3 (0.0-0.8); Monocytes % (Auto) 12.9 % (0.0-7.3); Platelet Count 258 K/mm3 (140-440); Red Blood Count 6.13 M/mm3 (3.65-5.03); Red Cell Distribution Width 14.6 % (13.2-15.2)
[2019-04-17 08:19] LABS: Hematocrit 60.1 % (35.5-45.6); Hemoglobin 20.3 gm/dl (11.8-15.2)
[2019-04-17 08:29] LABS: BUN/Creatinine Ratio 4; Blood Urea Nitrogen 3 mg/dL (9-20); Calcium 8.7 mg/dL (8.4-10.2); Hemolysis Index 8
--- NOTE | 2019-04-17 09:15 | Progress Note ---
Assessment and Plan Assessment and plan: --Polycythemia/high hemoglobin Hematology consult inpt vs op , discussed with Dr. Kirby --Perirectal abscess;status post transgluteal drain placement by radiology IV antibiotics, pain medications and f/u the cultures Drain functioning well , case management to assist with discharge planning Follow cultures, sensitivities, adjust antibiotics as needed Surgery planning to DC if drainage is minimal and discharge plan oral antibiotics --Constipation; stool softeners, resolved --Hyponatremia; present on admission, Resolved --Hypokalemia; resolved --DVT prophylaxis; Lovenox --Discharge planning per case management Assist with any discharge needs Discharge when medically stable and cleared by surgery Plan of care is reviewed with the patient and his nurse . History Interval history: Patient feels better no new complaints vital signs stable Hospitalist Physical - Constitutional Vitals: Temp Pulse Resp BP Pulse Ox 98.1 F 67 18 118/80 96 04/17/19 04:22 04/17/19 04:22 04/17/19 04:22 04/17/19 04:22 04/17/19 04:22 General appearance: Present: no acute distress, well-nourished - EENT Eyes: Present: PERRL, EOM intact - Neck Neck: Present: supple, normal ROM - Respiratory Respiratory effort: normal Respiratory: bilateral: diminished, negative: rales, rhonchi, wheezing - Cardiovascular Rhythm: regular Heart Sounds: Present: S1 & S2 - Extremities Extremities: no ischemia, pulses intact - Abdominal General gastrointestinal: soft, non-tender, non-distended, normal bowel sounds - Integumentary Integumentary: Present: clear, warm - Psychiatric Psychiatric: appropriate mood/affect, cooperative - Neurologic Neurologic: moves all extremities Results - Labs CBC & Chem 7: 04/17/19 07:47 04/17/19 07:47 Labs: Laboratory Last Values WBC 3.9 K/mm3 (4.5-11.0) L 04/17/19 07:47 RBC 6.13 M/mm3 (3.65-5.03) H 04/17/19 07:47 Hgb 20.3 gm/dl (11.8-15.2) H* 04/17/19 07:47 Hct 60.1 % (35.5-45.6) H* 04/17/19 07:47 MCV 98 fl (84-94) H 04/17/19 07:47 MCH 33 pg (28-32) H 04/17/19 07:47 MCHC 34 % (32-34) 04/17/19 07:47 RDW 14.6 % (13.2-15.2) 04/17/19 07:47 Plt Count 258 K/mm3 (140-440) 04/17/19 07:47 Lymph % (Auto) 25.5 % (13.4-35.0) 04/17/19 07:47 [place] % (Auto) 12.9 % (0.0-7.3) H 04/17/19 07:47 Eos % (Auto) 0.9 % (0.0-4.3) 04/17/19 07:47 Baso % (Auto) 0.8 % (0.0-1.8) 04/17/19 07:47 Lymph # 1.0 K/mm3 (1.2-5.4) L 04/17/19 07:47 [place] # 0.5 K/mm3 (0.0-0.8) 04/17/19 07:47 Eos # 0.0 K/mm3 (0.0-0.4) 04/17/19 07:47 Baso # 0.0 K/mm3 (0.0-0.1) 04/17/19 07:47 Seg Neutrophils % 59.9 % (40.0-70.0) 04/17/19 07:47 Seg Neutrophils # 2.4 K/mm3 (1.8-7.7) 04/17/19 07:47 Sodium 137 mmol/L (137-145) 04/17/19 07:47 Potassium 3.6 mmol/L (3.6-5.0) 04/17/19 07:47 Chloride 100.3 mmol/L (98-107) 04/17/19 07:47 Carbon Dioxide 26 mmol/L (22-30) 04/17/19 07:47 Anion Gap 14 mmol/L 04/17/19 07:47 BUN 3 mg/dL (9-20) L 04/17/19 07:47 Creatinine 0.7 mg/dL (0.8-1.5) L 04/17/19 07:47 Estimated GFR > 60 ml/min 04/17/19 07:47 BUN/Creatinine Ratio 4 % 04/17/19 07:47 Glucose 83 mg/dL (75-100) 04/17/19 07:47 Calcium 8.7 mg/dL (8.4-10.2) 04/17/19 07:47 Magnesium 1.80 mg/dL (1.7-2.3) 04/15/19 07:27 Urine Color Yellow (Yellow) 04/12/19 Unknown Urine Turbidity Clear (Clear) 04/12/19 Unknown Urine pH 6.0 (5.0-7.0) 04/12/19 Unknown Ur Specific [place] 1.010 (1.003-1.030) 04/12/19 Unknown Urine Protein <15 mg/dl mg/dL (Negative) 04/12/19 Unknown Urine Glucose (UA) Neg mg/dL (Negative) 04/12/19 Unknown Urine Ketones 20 mg/dL (Negative) 04/12/19 Unknown Urine Blood Sm (Negative) 04/12/19 Unknown Urine Nitrite Neg (Negative) 04/12/19 Unknown Urine Bilirubin Neg (Negative) 04/12/19 Unknown Urine Urobilinogen 4.0 mg/dL (<2.0) 04/12/19 Unknown Ur Leukocyte Esterase Neg (Negative) 04/12/19 Unknown Urine WBC (Auto) 2.0 /HPF (0.0-6.0) 04/12/19 Unknown Urine RBC (Auto) 4.0 /HPF (0.0-6.0) 04/12/19 Unknown Urine Bacteria (Auto) 1+ /HPF (Negative) 04/12/19 Unknown Urine Mucus 2+ /HPF 04/12/19 Unknown Active Medications - Current Medications Current Medications: Generic Name Dose Route Start Last Admin Trade Name Freq PRN Reason Stop Dose Admin Acetaminophen 650 mg 04/13/19 02:38 04/13/19 03:46 Tylenol PO 650 mg Q4H PRN Administration Pain MILD(1-3)/Fever >100.5/VALENTINO Acetaminophen/Hydrocodone Bitart 1 each 04/15/19 15:15 04/15/19 21:35 [place] 5/325 PO 1 each Q6H PRN Administration Pain , Severe (7-10) Docusate Sodium 100 mg 04/13/19 22:00 04/16/19 22:07 Colace PO 100 mg BID PEREZ Administration Enoxaparin Sodium 40 mg 04/13/19 10:00 04/16/19 09:31 Enoxaparin SUB-Q 40 mg QDAY PEREZ Administration Ampicillin Sodium/Sulbactam Sodium 3 gm in 100 mls @ 100 mls/hr 04/13/19 06:00 04/17/19 06:29 Unasyn/Ns 3 Gm/100 Ml IV 100 mls/hr Q6HR PEREZ Administration Protocol Ibuprofen 600 mg 04/14/19 11:56 04/17/19 00:35 Ibuprofen PO 600 mg Q8H PRN Administration Pain, Mild (1-3) Magnesium Hydroxide 30 ml 04/13/19 17:18 Milk Of Magnesia PO QDAY PRN Constipation Ondansetron HCl 4 mg 04/13/19 02:38 Zofran IV Q8H PRN Nausea And Vomiting Polyethylene Glycol 17 gm 04/13/19 12:39 Miralax 3350 PO QDAY PRN Constipation Sodium Chloride 10 ml 04/13/19 10:00 04/16/19 22:08 Sodium Chloride Flush Syringe 10 Ml IV 10 ml BID PEREZ Administration Sodium Chloride 10 ml 04/13/19 02:38 Sodium Chloride Flush Syringe 10 Ml IV PRN PRN LINE FLUSH Nutrition/Malnutrition Assess - Dietary Evaluation Nutrition/Malnutrition Findings: Nutrition Notes Start: 04/13/19 10:54 Freq: Status: Active Protocol: Document 04/13/19 10:54 ALYSSIA (Rec: 04/13/19 10:55 ALYSSIA [id number]) Nutrition Notes Need for Assessment generated from: dog raiser Initial or Follow up Brief Note Subjective/Other Information Pt screened for skin risk, however, Abhilash score is 20. Will assess upon further consult or LOS.
[2019-04-17] MEDS: DOCUSATE SODIUM 100 MG/10 ML ORAL LIQD PO SCH ×2 (09:19→21:19)
[2019-04-17] MEDS: ENOXAPARIN 40 MG/0.4 ML INJ SUB-Q SCH (09:19)
--- NOTE | 2019-04-17 11:36 | Progress Note ---
Assessment and Plan 28 yo M with perirectal abscess status post transgluteal drain placement by radiology 04/15/19 Drain output not being recorded. Pt states drain has not been emptied for the last 48 hrs Plan: 1. soft diet 2. stool softeners as needed 3. prn PO pain control 4. IV abx, await cultures from drainage procedure 5. drain management as ordered, record output q shift 6. repeat CT pelvis in am tomorrow to assess collection. If collection is res olved, will remove drain and dc on PO abx. Further recs pending culture and CT results. Plan discussed with patient. Thank you, please call with questions. Subjective Date of service: 04/17/19 Narrative: Pt seen and examined. No acute complaints. States drainage has been minimal. No f/c. No pain. Objective Vital Signs - 12hr 04/17/19 04/17/19 04:22 09:39 Temperature 98.1 F Pulse Rate 67 Respiratory 18 Rate Blood Pressure 118/80 O2 Sat by Pulse 96 96 Oximetry - General physical appearance Narrative Exam: Gen; AAOx3. NAD CV: s1, S2+ resp: even and unlabored Rectal: L transgluteal drain with seropurulent drainage. - Labs 04/17/19 07:47 04/17/19 07:47 Diabetes panel 04/17/19 Range/Units 07:47 Sodium 137 (137-145) mmol/L Potassium 3.6 (3.6-5.0) mmol/L Chloride 100.3 (98-107) mmol/L Carbon Dioxide 26 (22-30) mmol/L BUN 3 L (9-20) mg/dL Creatinine 0.7 L (0.8-1.5) mg/dL Glucose 83 (75-100) mg/dL Calcium 8.7 (8.4-10.2) mg/dL Calcium panel 04/17/19 Range/Units 07:47 Calcium 8.7 (8.4-10.2) mg/dL Pituitary panel 04/17/19 Range/Units 07:47 Sodium 137 (137-145) mmol/L Potassium 3.6 (3.6-5.0) mmol/L Chloride 100.3 (98-107) mmol/L Carbon Dioxide 26 (22-30) mmol/L BUN 3 L (9-20) mg/dL Creatinine 0.7 L (0.8-1.5) mg/dL Glucose 83 (75-100) mg/dL Calcium 8.7 (8.4-10.2) mg/dL Adrenal panel 04/17/19 Range/Units 07:47 Sodium 137 (137-145) mmol/L Potassium 3.6 (3.6-5.0) mmol/L Chloride 100.3 (98-107) mmol/L Carbon Dioxide 26 (22-30) mmol/L BUN 3 L (9-20) mg/dL Creatinine 0.7 L (0.8-1.5) mg/dL Glucose 83 (75-100) mg/dL Calcium 8.7 (8.4-10.2) mg/dL
[2019-04-17] MEDS: SODIUM CHLORIDE 0.9% 1000 ML 1,000 ML IV SCH (13:00)
[2019-04-18] MEDS: AMPICILLIN/SULBACTA 3GM/100ML 3 GM/100 ML BAG IV SCH ×3 (00:25→12:32)
[2019-04-18] MEDS: SODIUM CHLORIDE 0.9% 1000 ML 1,000 ML IV SCH (05:21)
--- NOTE | 2019-04-18 09:24 | Cat Scan Report ---
CT ABDOMEN AND PELVIS WITH CONTRAST HISTORY: rectal abscess s/p drainage, follow up. COMPARISON: 04/14/2019 TECHNIQUE: Helical CT images of the abdomen and pelvis were obtained following administration of intr avenous contrast. Sagittal and coronal reformatted images were reviewed. All CT scans at this [facility] are performed using CT dose reduction for ALARA by means of automated exposure control. CONTRAST: 100 ml of intravenous contrast administered. FINDINGS: Abdomen/pelvis: The left perirectal abscess has decreased from 6.1 x 5.5 cm to 5.0 x 3.8 cm in axial plane. A left gluteal drain is in place and appears in good position. Mild hepatosplenomegaly is unc hanged. The remaining visceral structures are within normal limits. No new fluid collection or inflam mation has developed. Lungs/bones: Focal opacity at the left lung base has decreased by 25-50%. The remainder the lungs ar e clear. Normal heart size. IMPRESSION: Decreased left perirectal abscess as described. Signer Name: Chao Woods Jr, MD Signed: 04/18/2019 9:20 AM Workstation Name: [id number]
--- NOTE | 2019-04-18 10:27 | Progress Note ---
Assessment and Plan 28 yo M with perirectal abscess status post transgluteal drain placement by radiology 04/15/19 Drain output not being recorded. Ct pelvis 04/18/19 - images and read reviewed. Perirectal collection is smaller with drain in satisfactory position Plan: 1. soft diet 2. stool softeners as needed 3. prn PO pain control 4. c/w Abx, cultures beta hemolytic group b strept. 5. drain management as ordered, record output q shift 6. case management consult for [facility]. Will need kai application as he has no insurance. Patient will need to be discharged with drain and be taught drain management by nursing. 3 way stopcock to be connected to drain in order to facillitate flushing of drain with 5-10 cc of sterile saline daily. Recommend 14 days of PO augmentin on dc. Pt may follow up in surgery office for drain management. Discussed with Dr. Setphens Thank you, please call with questions. Subjective Date of service: 04/18/19 Narrative: Pt seen and examined. No acute complaints. Afebrile. Havinf soft BMs. Tolerating a diet. Pain minimal. Objective Vital Signs - 12hr 04/18/19 04:39 Temperature 97.8 F Pulse Rate 63 Respiratory 24 Rate Blood Pressure 132/92 O2 Sat by Pulse 94 Oximetry - General physical appearance Narrative Exam: Gen: AAOx3. NAD Rectal: transgluteal drain with purulent drainage in tubing. Tube flushed with 8 cc of sterile saline and tube started draining better. - Labs 04/17/19 07:47 04/17/19 07:47
--- NOTE | 2019-04-18 11:42 | Discharge Summary ---
Providers - Providers Date of Admission: 04/12/19 23:41 Date of discharge: 04/18/19 Attending physician: JAYLAN BARGER 04/12/19 22:54 Consult to Physician [CONS] Stat Comment: RAGHU Dailey spoke with Dr. Bernal @ [phone] Consulting Provider: JULIANNA BERNAL Physician Instructions: Reason For Exam: rectal abscess 04/13/19 12:39 Consult to Interventional Radiology [CONS] Routine Consulting Provider: SILVINO MELÉNDEZ Reason For Exam: PERIRECTAL ABSCESS, please eval for perc drain Place consult to:: Dr. Dashawn Barba Notified:: [employer] 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 Kirby --Perirectal abscess;status post transgluteal drain placement by radiology IV antibiotics, pain medications and f/u the cultures Drain functioning well , case management to assist with discharge planning Follow cultures, sensitivities, adjust antibiotics as needed Surgery planning to DC if drainage is minimal and discharge plan oral antibiotics --Constipation; stool softeners, resolved --Hyponatremia; present on admission, Resolved --Hypokalemia; resolved --DVT prophylaxis; Lovenox --Discharge planning per case management Assist with any discharge needs Discharge when medically stable and cleared by surgery Plan of care is reviewed with the patient and his nurse . Disposition: [id number]/[place]-06 HOME UNDER HOME [facility] Time spent for discharge: 32 min Core Measure Documentation - Palliative Care Palliative Care/ Comfort Measures: Not Applicable - Core Measures Any of the following diagnoses?: none Exam - Constitutional Vitals: Temp Pulse Resp BP Pulse Ox 97.8 F 63 24 132/92 94 04/18/19 04:39 04/18/19 04:39 04/18/19 04:39 04/18/19 04:39 04/18/19 04:39 General appearance: Present: no acute distress, well-nourished - EENT Eyes: Present: PERRL, EOM intact - Neck Neck: Present: supple, normal ROM - Respiratory Respiratory effort: normal Respiratory: negative: diminished, rales, rhonchi, wheezing - Cardiovascular Rhythm: regular Heart Sounds: Present: S1 & S2 - Extremities Extremities: no ischemia, No edema - Abdominal General gastrointestinal: Present: soft, non-tender, non-distended, normal bowel sounds - Rectal Rectal Exam: other (Gluteal drain in place) - Integumentary Integumentary: Present: clear, warm - Musculoskeletal Musculoskeletal: strength equal bilaterally - Psychiatric Psychiatric: appropriate mood/affect, cooperative - Neurologic Neurologic: moves all extremities Plan Activity: advance as tolerated Diet: regular Wound: drain care as instructed Additional Instructions: Wound and drain care. F/U with surgeon in one week Follow up with: JULIANNA BERNAL DO [Staff Physician] - 7 Days PRIMARY CAREMD [Primary Care Provider] - 7 Days ABRIL KIRBY MD [Staff Physician] - 7 Days Prescriptions: Amoxicillin/K Clav Tab [Augmentin 875 mg] 1 tab PO Q12HR #28 tab Ibuprofen [Motrin 600 MG tab] 600 mg PO Q8H PRN #21 tablet PRN Reason: Pain, Mild (1-3)
[2019-04-18] MEDS: ENOXAPARIN 40 MG/0.4 ML INJ SUB-Q SCH (12:29)
[2019-04-18] MEDS: DOCUSATE SODIUM 100 MG/10 ML ORAL LIQD PO SCH (12:30)
[2019-04-18] MEDS: IBUPROFEN 600 MG TAB PO PRN (12:31)
[2019-04-18 12:44] VITALS: BP 141/99
[2019-04-18 12:48] LABS: Iron 81 ug/dL (49-181); Total Iron Binding Capacity 159 mcg/dL (250-450)
--- NOTE | 2019-04-18 22:43 | Event Note ---
Date: 04/18/19 polycythemia primary vs secondary abscess - s/p procedure [facility] does not do IN-PT phlebotomy OP follow up an option
--- NOTE | 2019-04-20 10:45 | Consultation ---
REFERRED BY: Dr. Stephens REASON FOR CONSULTATION: Polycythemia. HISTORY OF PRESENT ILLNESS: I saw the patient, a 28-year-old male in the medical floor. He came to the hospital because of rectal pain and pressure. No history of diarrhea, no abdominal pain, history of anal sex present few weeks ago. During this admission, IR did abscess drainage procedure of the perirectal abscess. His hemoglobin and hematocrit was high, I have been asked to evaluate the patient for same. At this time, no headache, no visual disturbances, no ear discharge, no chest pain, no abdominal pain, no vomiting, no diarrhea. History of abscess drainage procedure with drain present. No history of snoring. Does not know if his hemoglobin and hematocrit is high in the past. He is uninsured. PAST MEDICAL HISTORY: Nil significant. SOCIAL HISTORY: History of smoking present. PHYSICAL EXAMINATION: VITAL SIGNS: Temperature 98, pulse 82, respirations 19, BP 141/99. HEENT: No icterus. NECK: No neck lymph nodes. HEART: S1, S2. LUNGS: Clear to auscultation. ABDOMEN: Soft. EXTREMITIES: Drain present in the gluteal area. NEUROLOGIC: Alert, awake, oriented. LABORATORY DATA: White cell 3.9, hemoglobin 20, hematocrit 60, MCV 98, platelet 258. Potassium 3.6, creatinine 0.7, calcium 8.7, serum iron 81, ferritin 488. B12 of 903. Folate 7.18. ASSESSMENT AND PLAN: 1. Polycythemia, primary versus secondary. The patient is uninsured. He needs JAK2 testing done. He needs a phlebotomy trial at the hospital, [place] does not come to do phlebotomy trial. In the past when I had attempted to do same, other agencies wanted the patient to be discharged. [facility] does not do the phlebotomy. 2. Rectal abscess. 3. History of anal sex. 4. I will follow the patient during inpatient and then in the clinic setting. JOB# [id number] JAMAR/INNA
== END 2019-04-18 16:30 | disposition home health service (06) | DRG 394 ==
LOC: ED 13:33 → 3A 23:41
PROVIDERS: ADMIT Internal Medicine; ATTEND Internal Medicine
PROC: 0D9P30Z Drainage of Rectum with Drainage Device, Percutaneous Approach (ICD-10-PCS; principal; 2019-04-15)
DX: K61.1 Rectal abscess (principal); E87.1 Hypo-osmolality and hyponatremia; K59.00 Constipation, unspecified; E87.6 Hypokalemia; F17.210 Nicotine dependence, cigarettes, uncomplicated; Z82.49 Family history of ischemic heart disease and other diseases of the circulatory system
CPT/HCPCS: 10160; 36415; 71275; 74176; 74177; 77012; 80048; 81001; 82607; 82728; 82747; 83550; 83735; 84132; 85025; 87040; 87116; 96374; G0378; J0295; J1650; J1885; J2250; J2270; J3010; J7030; J7040; Q9967